=== PATIENT | female | born 1950 | race Caucasian/White ===

== ENCOUNTER 2017-01-17 13:00 | Inpatient (IN) | payer MEDICARE ==
[~2017-01-17] VITALS: Ht 165.1 cm; Wt 63.0 kg
--- NOTE | ~2017-01-17 | DS ---
[facility] 66 [facility] [address] ROOM: [id number] [place], [place] [id number] LOCATION: [facility] ADMIT DATE: 01/31/2017 Discharge Summary DISCHARGE DATE: 02/02/2017 FAMILY PHYSICIAN: Florentino Klein MD ATTENDING PHYSICIAN: Pavan Pelaez PRIMARY DIAGNOSIS: Degenerative joint disease of the right knee. SECONDARY DIAGNOSES: 1. history of pneumonia. 2. History of kidney infection. 3. History of pulmonary emphysema. PROCEDURE PERFORMED: Right total knee arthroplasty. HISTORY: The patient is a 66-year-old female, who presents with advanced right knee degenerative joint disease and associated severely compromised activities of daily living. The patient has decided to proceed with total knee arthroplasty after having been thoroughly counseled regarding the risks, benefits, limitations and alternatives. Please refer to the outpatient clinic notes and admission history and physical for this patient. HOSPITAL COURSE: The patient underwent a right total knee arthroplasty on 01/31/2017 without complications. Spinal anesthesia plus adductor canal block plus periarticular local anesthesia was utilized. The patient received 24 hours of perioperative prophylactic antibiotics and remained hemodynamically stable, neurovascularly intact throughout the entire hospital course. The postoperative prophylactic deep venous thrombosis prophylaxis consisted of Xarelto, early mobilization and pneumatic compression devices. Daily physical therapy for gait training, transfer training range of motion and quadriceps isometric exercises were received. The patient progressed well in physical therapy. On the date of discharge, 02/02/2017, the incision at the knee was healing well and showed no signs of infection. DISPOSITION: Home. DISCHARGE ACTIVITY: The patient is to bear weight as tolerated with range of motion and quadriceps isometric exercises as instructed. The operative extremity is to be elevated at least 90% of the day. There is to be sterile 4x4 gauze dressings to the incision daily. Dr. Pelaez is to be notified immediately if there is any increased pain, fevers, chills erythema or drainage. DISCHARGE MEDICATIONS: 1. Xarelto 10 mg 1 tab p.o. daily for 12 days for postoperative DVT PATIENT'S NAME: [facility] AGE: 66 Y [address] ROOM: [facility] [place], [place] [address] LOCATION: [facility] ADMIT DATE: 01/31/2017 Discharge Summary DISCHARGE DATE: 02/02/2017 FAMILY PHYSICIAN: Florentino Klein MD ATTENDING PHYSICIAN: Pavan Pelaez. 2. Oxycodone 5 mg 1 to 2 tabs p.o. every 4 hours p.r.n. for pain. 3. Gabapentin 300 mg 1 tab p.o. every night for 7 days for pain. 4. Diazepam 5 mg 1/2 to 1 tab p.o. every 6 hours p.r.n. for muscle spasms. 5. Celebrex 200 mg 1 tab p.o. b.i.d. x7 days for pain. 6. Nucynta 50 mg 1 tab p.o. every 6 hours p.r.n. for pain. She is not to take Nucynta with oxycodone or vice versa. 7. She was then instructed to continue all her other pre-admission medications as instructed by her internal medicine doctor. FOLLOWUP: Followup appointment is to be with Dr. Pelaez's office on 02/07/2017 for initial postoperative evaluation with x-rays of the knee and staple removal. LYNDSAY MCKEON PA-C FOR MD JUAN MANUEL ROSAELS/constantin /[id number] d: 02/13/17 2154 t: 02/16/17 0933, DISCHARGE SUMMARY
--- NOTE | ~2017-01-17 | OR ---
PATIENT'S NAME: CHELY HURTS [facility] AGE: 66 Y [address] ROOM: [place] [address] LOCATION: [facility] ADMIT DATE: 01/31/2017 OR/Procedure Report DISCHARGE DATE: FAMILY PHYSICIAN: Florentino Klein MD ATTENDING PHYSICIAN: CHRIS GAMEZ SURGEON: Chris Gamez MD TIME RECORDER: Yoel Duffy PA-C and Surjit Casillas CST/ROSIN BARREL FILLER. DATE OF PROCEDURE: 01/31/2017 PRE-OP DIAGNOSIS: Severe right knee degenerative joint disease (primary osteoarthritis). POST-OP DIAGNOSIS: Severe right knee degenerative joint disease (primary osteoarthritis). OPERATION: Right total knee arthroplasty with computer navigation. ANESTHESIA: Spinal anesthesia plus adductor canal block plus periarticular local anesthesia (ropivacaine with epinephrine and Toradol). ESTIMATED BLOOD LOSS: Less than 10 mL. DRAIN: None. SPECIMEN: None. COMPLICATIONS: None. IMPLANT SYSTEM: Jose Angel Triathlon. Size 4 right posterior stabilized femoral component Size 3 universal modular tibial tray 9 mm posterior stabilized size 3 X3 tibial polyethylene insert 29 mm oval X3 patella component (triple pegged). INDICATIONS FOR SURGERY: Chely Hurst is a 66-year-old female who presents with advanced right knee degenerative joint disease and associated severely compromised activities of daily living. The patient has decided to proceed with knee replacement after having been thoroughly counseled regarding the associated risks, benefits, and limitations. We have specifically reviewed the risks and implications of infection, deep venous thrombosis, pulmonary embolism, mortality, neurovascular complications, blood transfusion (and associated potential for disease transmission or transfusion reaction), stiffness, instability, mechanical deterioration of the components (due to wear and or loosening), and the potential need for revision. We have also PATIENT'S NAME: JERI HURSTTY Vaughn [facility] AGE: 66 Y [address] ROOM: [place] [address] LOCATION: [facility] ADMIT DATE: 01/31/2017 OR/Procedure Report DISCHARGE DATE: FAMILY PHYSICIAN: Folrentino Klein MD ATTENDING PHYSICIAN: CHRIS GAMEZ emphasized the importance of active involvement and compliance with post- operative physical therapy as a means of optimizing range of motion and functional recovery. Informed consent has been granted. DESCRIPTION OF PROCEDURE: The patient was positioned supine after administration of anesthesia and prophylactic antibiotics. A well-padded pneumatic tourniquet was placed around the right proximal thigh, and the right lower extremity was prepped and draped with vigilant sterile technique. The patient's name as well as the intended operative side and procedure were confirmed with a verbal time-out involving myself, the circulating nurse, the scrub nurse, and the anesthesiologist. Examination under anesthesia demonstrated a moderate effusion. There were no active skin lesions or masses. There was no erythema. There was no abnormal warmth. There was no deformity. Range of motion under anesthesia was from an 8 degree flexion contracture to 130 degrees of flexion, there was no ligamentous insufficiency. The right lower extremity was elevated and exsanguinated with an Esmarch wrap, and the pneumatic tourniquet was inflated to 300mmHg. The knee was approached through a longitudinal midline incision. A medial parapatellar arthrotomy was performed and the patella was everted. Examination of the joint space demonstrated a large amount of benign-appearing translucent synovial fluid. There was generalized mild nonproliferative synovitis. There were no loose bodies. There was a large fabella. There was a large popliteal cyst, which I decompressed into the posterior aspect of the medial compartment by dilating its point of communication. The cruciate ligaments were intact. There was a small osteophyte at the intercondylar notch. There was full-thickness loss of articular cartilage involving 80% of the medial femoral condyle and 60% of the medial tibial plateau. There were large osteophytes at the medial femoral condyle, medial tibial plateau, and the inferomedial border of the patella. There was compartmentalization of the suprapatellar pouch by a large thickened suprapatellar plica. This was removed. There was a moderate-sized osteophyte at the superomedial margin of the femoral trochlea. There were grade 2 degenerative changes at the patella and the femoral trochlea. There were grade 2 degenerative changes at the lateral femoral condyle. There were mild grade 3 degenerative changes at the medial aspect of the lateral tibial plateau. There was a small osteophyte at the lateral tibial plateau. There was complex degenerative tearing at the posterior half of the medial meniscus. There was a small flap tear at the posterior horn lateral meniscus. Remnants of the menisci and cruciate ligaments were excised. The [employer] computer navigation femoral tracker was pinned in place at the distal aspect of the femoral trochlea. Absence of motion between the femur and the tracking PATIENT'S NAME: CHELY HURST [facility] AGE: 66 Y [address] ROOM: [address] [place] [id number] LOCATION: [facility] ADMIT DATE: 01/31/2017 OR/Procedure Report DISCHARGE DATE: FAMILY PHYSICIAN: Florentino Klein MD ATTENDING PHYSICIAN: CHRIS GAMEZ device was confirmed manually and visually. Femoral osseous landmarks were obtained in order to calibrate the computer navigation system. Landmarks included the center of rotation of the ipsilateral hip, the center-point of the distal femur, the femoral AP axis, 57 points on the medial femoral condyle articular surface, and 57 points on the lateral femoral condyle articular surface. The [employer] computer navigation system was subsequently utilized to position the distal femoral resection block such that the distal femoral resection was performed perfectly perpendicular to the femoral mechanical axis. The distal femoral resection was performed with a [employer] oscillating saw. The [employer] computer navigation tibial tracker was pinned in place at the anterior aspect of the tibial plateau. Absence of motion between the tibia and the tracking device was confirmed manually and visually. Tibial osseous landmarks were obtained in order to calibrate the computer navigation system. Landmarks included the center-point of the tibial plateau, the AP tibial axis, 57 points on the medial tibial plateau articular surface, 57 points on the lateral tibial plateau articular surface, the medial malleolus, and the lateral malleolus. The [employer] computer navigation system was subsequently utilized to position the proximal tibial resection block such that the proximal tibial resection was performed perfectly perpendicular to the tibial mechanical axis. The proximal tibial resection was performed with a [employer] Precision oscillating saw. Perpendicularity of the tibial resection with respect to the tibial shaft axis was reconfirmed by inserting a spacer- block attached to an extramedullary guide ariel. External rotation of the anterior and posterior femoral resections was set parallel to the epicondylar axis and carefully adjusted in order to create a rectangular flexion gap. The box resection was performed with a reciprocating saw. Anterior and posterior chamfer resections were performed with the oscillating saw. Posterior condyle osteophytes were excised with an osteotome. All other osteophytes were excised with a rongeur. Resection of all remnants of the menisci was reconfirmed. Flexion and extension gaps were confirmed to be symmetric and well balanced with a spacer-block technique. The patella resection was performed with an oscillating saw such that the composite thickness of the reconstructed patella was equivalent to the thickness of the pechanga patella. Patella tracking was confirmed to be optimal and there was no need for a lateral retinacular release was required. All trial components were removed and all prepared osseous surfaces were thoroughly irrigated with pulsatile saline lavage and dried prior to cementing all three components in a single stage using Jose Angel Simplex cement containing pre-mixed tobramycin. All extruded excess cement was removed. The entire joint space was thoroughly inspected and thoroughly irrigated with PATIENT'S NAME: CHELY HURST [facility] AGE: 66 Y [address] ROOM: [address] [address] LOCATION: [facility] ADMIT DATE: 01/31/2017 OR/Procedure Report DISCHARGE DATE: FAMILY PHYSICIAN: Florentino Klein MD ATTENDING PHYSICIAN: CHRIS GAMEZ bacteriostatic pulsatile saline lavage to assure that there was no residual debris of any sort. Final range of motion was from a full extension (with no passive hyperextension) degrees of extension to 130 degrees of flexion. Patella tracking was reconfirmed to be optimal. There was excellent anteroposterior stability at 90 degrees of flexion. There was 0 mm of medial lift-off to valgus stress in full extension. There was 1 mm of lateral lift-off to varus stress in full extension. The arthrotomy was closed with multiple simple and [id number] interrupted #1 Vicryl. Subcutaneous tissues were thoroughly re-irrigated with bacteriostatic pulsatile saline lavage. Subcutaneous tissues were re- approximated with simple buried interrupted #0 Vicryl sutures. The skin was closed with simple buried interrupted 2-0 Vicryl sutures followed by surgical jg. The dressing consisted of Xeroform gauze, 4x4 gauze, ABD pads and two 6-inch Noel Wraps. There were no intra-operative complications. It should be noted that the physician's liaison inspection laboratory assistant played an active, integral role throughout this entire operation. By providing expert retraction, they greatly facilitated and expedited safe and effective exposure of the distal femur, proximal tibia and patella for preparation and implantation of the components. They were also actively involved in the patient's positioning, prepping and draping, as well as wound closure. MD TD ROSALES/constantin /[id number] d: 01/31/17 1312 t: 02/17/17 0749, OPERATIVE SUMMARY
[2017-01-19] MEDS ORDERED: ADVIL200 MG PO (10:17)
[2017-01-19] MEDS ORDERED: ALEVE220 MG PO (10:17)
[2017-01-19] MEDS ORDERED: ASPIRIN325 MG PO (10:18)
[2017-01-19] MEDS ORDERED: FISH OIL 1,0001 EAC3 PO (10:19)
[2017-01-19] MEDS ORDERED: MULTI VITAMIN1 EACH PO (10:19)
[2017-01-19] MEDS ORDERED: VITAMIN B-12250 MCG PO (10:20)
[2017-01-19] MEDS ORDERED: VITAMIN D1000 UNIT PO (10:21)
[2017-01-19] MEDS ORDERED: GINKGO BILOBA40 MG PO (10:23)
--- NOTE | 2017-01-31 16:14 | NUR ---
Significant Event: PT ARRIVED ON FLOOR AT 1315. CONT WITH POST OP VITAL SIGNS 3RD HOURLY AT 1900. NO VOID SINCE ARRIVING. ABLE TO MOVE FEE AND WIGGLES TOES SOME. TAKES FLUIDS AND FOOD WELL. IV FLUIDS INFUSING. DILAUDID AND TYLENOL LAST AT 1700. ANTIBIOTIC AT 1800. ICE TO KNEE. Follow up:
--- NOTE | 2017-01-31 17:11 | NUR ---
Introduced self/role to patient and sister. Patient attended the preop joint class. Reports she lives alone in an apartment in [place]. Has daughter who will be able to help as needed upon discharge. Has walker, elevated toilet seat and a combination tub/shower with a curtain. Reviewed and encouraged use of IS. Will follow and assist as needs identified.
--- NOTE | 2017-02-01 03:55 | NUR ---
Significant Event: Reinforce to not keep knee bent. 1 assist with transfer. Voids without difficulty. Dressing is clean, dry and intact. CSM WNL. Valium at 0244. Dilaudid at 2242. Follow up:
[2017-02-01 06:04] LABS: HEMOGLOBIN 11.7 g/dL (10.0-15.0)
--- NOTE | 2017-02-01 10:00 | NUR ---
Introduced self/role to patient. She lives in [place], [place]. She stated her family was getting her DME before she goes home tomorrow. She denied any barriers to going home or at home. Added my name to her marker board, will continue to follow.
--- NOTE | 2017-02-01 16:44 | NUR ---
Significant Event: Ambulates with SBA and walker. Dressing C/D/I. Ez wrap ice at all times. Voids without difficulty. CSM WNL. Emesis this am, Zofran given. Pain med changed to Roxicodone. Plans to dismiss to home tomorrow. Follow up:
--- NOTE | 2017-02-02 03:27 | NUR ---
Significant Event: Dressing is clean, dry and intact. CSM WNL. Standby assist. Voids without difficulty. Oxycodone at 0023. Valium 2.5mg at 2210. Possible dismissal. Follow up:
[2017-02-02] MEDS ORDERED: PAIN RELIEF EX500 MG PO (15:10)
[2017-02-02] MEDS ORDERED: NEURONTIN300 MG PO (15:15)
[2017-02-02] MEDS ORDERED: COLACE100 MG PO (15:15)
[2017-02-02] MEDS ORDERED: MIRALAX17 GM PO (15:17)
[2017-02-02] MEDS ORDERED: XARELTO10 MG PO (15:20)
[2017-02-02] MEDS ORDERED: CELEBREX200 MG PO (15:21)
[2017-02-02] MEDS ORDERED: VALIUM5 MG PO (15:21)
--- NOTE | 2017-02-02 16:19 | NUR ---
Dismissal Note: Ambulates with SBA and walker. Noel wrap removed, Mepilex in place C/D/I. Ez wrap ice at all times. Voids without difficulty. CSM WNL. Nucynta given at 1445. Mary Jo education given with dismissal intructions, patient and daughter state understanding. IV d/cd. Dismissed to home with daughter per private vehocle.
== END 2017-02-02 16:50 | disposition disaster alternative care site (69) | DRG 470 ==
LOC: G3N 01-31 08:15
PROVIDERS: ADMIT Orthopaedic Surgery
PROC: XR2G021 Monitoring of Right Knee Joint using Intraoperative Knee Replacement Sensor, Open Approach, New Technology Group 1 (ICD-10-PCS; principal; 2017-01-31)
PROC: 0SRC0J9 Replacement of Right Knee Joint with Synthetic Substitute, Cemented, Open Approach (ICD-10-PCS; principal; 2017-01-31)
DX: M17.11 Unilateral primary osteoarthritis, right knee (principal); F17.200 Nicotine dependence, unspecified, uncomplicated; Z87.09 Personal history of other diseases of the respiratory system
CPT/HCPCS: C1713; C1776; J0690; J1100; J1885; J2001; J2250; J2405; J2795; J7120

== ENCOUNTER → 2017-01-19 | Outpatient (CLI) | payer MEDICARE ==
[~2017-01-19] MED LIST: ADVIL200 MG PO; ALEVE220 MG PO; ASPIRIN325 MG PO; CELEBREX200 MG PO; COLACE100 MG PO; FISH OIL 1,0001 EAC3 PO; GINKGO BILOBA40 MG PO; MIRALAX17 GM PO; MULTI VITAMIN1 EACH PO; NEURONTIN300 MG PO; PAIN RELIEF EX500 MG PO; VALIUM5 MG PO; VITAMIN B-12250 MCG PO; VITAMIN D1000 UNIT PO; XARELTO10 MG PO
== END | disposition disaster alternative care site (69) ==
LOC: GNJRC 11:00
DX: Z01.812 Encounter for preprocedural laboratory examination (principal); M17.11 Unilateral primary osteoarthritis, right knee